=== PATIENT | female | born 1955 | race Caucasian/White ===

== ENCOUNTER 2023-07-02 14:37 | Emergency (ER) | payer OTHER, MEDICAID ==
[~2023-07-02] VITALS: Ht 157.5 cm; Wt 90.7 kg
[2023-07-02 14:41] VITALS: BP_SYST 138; PULSE 75; RESP 18; TEMP 98.3; O2SAT 98
[2023-07-02 15:38] LABS: BASOPHILS # (AUTO) 0.1 K/uL (0.0-0.2); BASOPHILS % (AUTO) 1.1 % (0.0-2.0); EOSINOPHILS # (AUTO) 0.1 K/uL (0.0-0.4); EOSINOPHILS % (AUTO) 0.9 % (0.0-4.0); HEMATOCRIT 33.3 % (36-48); HEMOGLOBIN 11.2 g/dL (12.0-16.0); LYMPHOCYTES # (AUTO) 1.4 K/uL (1.0-5.5); LYMPHOCYTES % (AUTO) 21.3 % (20.5-51.5); MEAN CORPUSCULAR HEMOGLOBIN 30 pg (27-31); MEAN CORPUSCULAR HGB CONC 34 % (32-36); MEAN CORPUSCULAR VOLUME 89 fL (79.0-98.0); MONOCYTES # (AUTO) 0.7 K/uL (0.0-1.0); MONOCYTES % (AUTO) 10.4 % (1.7-9.3); NEUTROPHILS # (AUTO) 4.4 K/uL (1.8-7.7); NEUTROPHILS % (AUTO) 66.3 % (40.0-70.0); PLATELET COUNT (AUTO) 342 K/uL (130-430); RED BLOOD CELL COUNT(AUTO) 3.76 MIL/uL (4.2-6.2); RED CELL DISTRIBUTION WIDTH 16.6 % (9.0-15.0); WHITE BLOOD COUNT (AUTO) 6.7 K/uL (4.8-10.8)
[2023-07-02 15:49] LABS: INR 1.1 (0.8-1.2)
[2023-07-02 15:51] LABS: ANION GAP 8 (5-15); CALCIUM 9.1 mg/dL (8.4-11.0); CARBON DIOXIDE 27 mmol/L (23-29); CHLORIDE 97 mmol/L (98-107); CREATININE 2.79 mg/dL (0.55-1.30); GFR AFRICAN AMERICAN 22 mL/min (>90); GLUCOSE 112 mg/dL (74-106); POTASSIUM 5.1 mmol/L (3.5-5.1); SODIUM SERUM 132 mmol/L (136-145); UREA NITROGEN, BLOOD 41 mg/dL (8-21)
[2023-07-02 15:54] LABS: GFR NON AFRICAN-AMERICAN 18 mL/min (>90)
[2023-07-02 16:15] LABS: ALANINE AMINOTRANSFERASE 28 U/L (12-78); AMYLASE 27 U/L (0-100); ASPARTATE AMINOTRANSFERASE 24 U/L (10-37); BILIRUBIN,DIRECT 0.1 mg/dL (0.0-0.3); LACTATE DEHYDROGENASE 128 U/L (81-234); LIPASE 27 U/L (16-77); TOTAL BILIRUBIN 0.3 mg/dL (0.0-1.0); TOTAL PROTEIN, SERUM 7.8 g/dL (6.4-8.3)
[2023-07-02] MEDS ORDERED: IBUP-1969 PO (17:14)
[2023-07-02] MEDS ORDERED: FLEETMO RC (17:14)
[2023-07-02] MEDS: MORPHINE 4 MG INJ. 4 MG/ML VIAL IM ONE (20:31)
[2023-07-02 20:35] VITALS: BP_SYST 156; PULSE 83; RESP 16; TEMP 98.4; O2SAT 94
== END 2023-07-02 20:35 | disposition home or self-care (01) ==
LOC: SED 14:37
DX: K59.00 Constipation, unspecified (principal); D21.9 Benign neoplasm of connective and other soft tissue, unspecified; R10.84 Generalized abdominal pain; R11.2 Nausea with vomiting, unspecified; Z88.0 Allergy status to penicillin; Z88.1 Allergy status to other antibiotic agents; Z79.899 Other long term (current) drug therapy
CPT/HCPCS: 99285; 74176; 96374; 80076; 80048; 82150; 83615; 83690; 85025; 85610; 85730; 84484; 36415; 83605; 82397; J2270

== ENCOUNTER 2023-11-06 20:55 | Inpatient (IN) | payer OTHER, MEDICAID ==
[~2023-11-06] VITALS: Ht 157.5 cm; Wt 78.6 kg
[~2023-11-06 20:55] MED LIST: ACET325T PO; AMIN30LI2 PO; AMLO5TAB4 PO; ASPI-1393 PO; CALC667T6 PO; DARB60VI INJ; DOCU-144 PO; DOCU250C71 PO; ERTA1VIA3 INJ; FAMO20TA8 PO; FOLI0.8T42 PO; GLUC1VIA20 IM; HEPA500015 SUBCUT; HYDR100T13 PO; IBUP-1969 PO; INSU100V SUBCUT; INSU100V44 SUBCUT; LACT10SO6 PO; LACT1CAP57 PO; LIP40 PO; Lactulose PO; METO50TA16 PO; NITR30OI TD; ONDA4TAB55 PO
[2023-11-06 21:11] VITALS: BP_SYST 135; PULSE 77; RESP 18; TEMP 98.7; O2SAT 97
[2023-11-06] MEDS ORDERED: LACT10SO7 PO (22:49)
[2023-11-06] MEDS ORDERED: DEC4 PO (22:49)
[2023-11-06] MEDS ORDERED: SSNOVOLOG SUBCUT (22:49)
[2023-11-06] MEDS ORDERED: PRO40 PO (22:49)
[2023-11-06] MEDS ORDERED: HYDR-3917 PO (22:49)
[2023-11-06] MEDS ORDERED: HYDR50TA44 PO (22:49)
[2023-11-06] MEDS ORDERED: TOPXL100 PO (22:49)
[2023-11-06] MEDS ORDERED: SACC250C12 (22:49)
[2023-11-06] MEDS ORDERED: IPRA4AER INH (22:49)
[2023-11-06 23:02] LABS: BASOPHILS % (AUTO) 0.1 % (0.0-2.0); HEMATOCRIT 33.2 % (36-48); HEMOGLOBIN 11.1 g/dL (12.0-16.0); LYMPHOCYTES # (AUTO) 0.7 K/uL (1.0-5.5); LYMPHOCYTES % (AUTO) 5.2 % (20.5-51.5); MEAN CORPUSCULAR HEMOGLOBIN 30 pg (27-31); MEAN CORPUSCULAR HGB CONC 33 % (32-36); MEAN CORPUSCULAR VOLUME 90 fL (79.0-98.0); MONOCYTES # (AUTO) 0.8 K/uL (0.0-1.0); NEUTROPHILS # (AUTO) 11.1 K/uL (1.8-7.7); NEUTROPHILS % (AUTO) 88.7 % (40.0-70.0); PLATELET COUNT (AUTO) 300 K/uL (130-430); RED BLOOD CELL COUNT(AUTO) 3.68 MIL/uL (4.2-6.2); RED CELL DISTRIBUTION WIDTH 16.1 % (9.0-15.0); WHITE BLOOD COUNT (AUTO) 12.5 K/uL (4.8-10.8)
[2023-11-06 23:12] LABS: ANION GAP 10 (5-15); CALCIUM 8.6 mg/dL (8.4-11.0); CARBON DIOXIDE 24 mmol/L (23-29); CHLORIDE 97 mmol/L (98-107); CREATININE 4.64 mg/dL (0.55-1.30); GFR AFRICAN AMERICAN 12 mL/min (>90); GLUCOSE 310 mg/dL (74-106); POTASSIUM 4.7 mmol/L (3.5-5.1); SODIUM SERUM 131 mmol/L (136-145)
[2023-11-06 23:15] LABS: GFR NON AFRICAN-AMERICAN 10 mL/min (>90); UREA NITROGEN, BLOOD 102 mg/dL (8-21)
[2023-11-07] VITALS (10 sets, daily range): BP systolic 111–177; PULSE 60–83; RESP 16–18; TEMP 97.2–98.9; O2SAT 95–100
[2023-11-07] MEDS: cloNIDine HCL 0.1 MG TABLET PO PRN (02:55)
[2023-11-07] MEDS: HEPARIN SODIUM, PORCINE 10,000 UNITS/ 10 ML VIAL MC ONE (04:55)
[2023-11-07] MEDS: HEPARIN SODIUM,PORCINE 5,000 UNITS/ML VIAL IVP ONE ×2 (05:04→05:05)
[2023-11-07] MEDS ORDERED: HYDROcodone/ACETAMIN 5-325 MG TAB (NORCO/ VICODIN) PO PRN (05:15)
[2023-11-07] MEDS ORDERED: NALOXONE HCL 0.4 MG/ML AMP (NARCAN) IVP PRN (05:15)
[2023-11-07] MEDS ORDERED: ACETAMINOPHEN 325 MG TABLET PO PRN ×2 (05:15)
[2023-11-07] MEDS ORDERED: GLUCAGON,HUMAN RECOMBINANT 1 MG VIAL IM PRN (06:45)
[2023-11-07] MEDS: INSULIN Lispro 100 UNITS/ML, 3 ML VIAL (humaLOG) SUBCUT SCH (06:51)
[2023-11-07 08:40] LABS: BASOPHILS % (AUTO) 0.3 % (0.0-2.0); EOSINOPHILS % (AUTO) 0.3 % (0.0-4.0); HEMATOCRIT 33.9 % (36-48); HEMOGLOBIN 11.2 g/dL (12.0-16.0); LYMPHOCYTES # (AUTO) 1.1 K/uL (1.0-5.5); LYMPHOCYTES % (AUTO) 7.7 % (20.5-51.5); MEAN CORPUSCULAR HEMOGLOBIN 30 pg (27-31); MEAN CORPUSCULAR HGB CONC 33 % (32-36); MEAN CORPUSCULAR VOLUME 90 fL (79.0-98.0); MONOCYTES # (AUTO) 1.2 K/uL (0.0-1.0); MONOCYTES % (AUTO) 8.2 % (1.7-9.3); NEUTROPHILS # (AUTO) 11.8 K/uL (1.8-7.7); NEUTROPHILS % (AUTO) 83.5 % (40.0-70.0); PLATELET COUNT (AUTO) 235 K/uL (130-430); RED BLOOD CELL COUNT(AUTO) 3.77 MIL/uL (4.2-6.2); RED CELL DISTRIBUTION WIDTH 15.4 % (9.0-15.0); WHITE BLOOD COUNT (AUTO) 14.2 K/uL (4.8-10.8)
[2023-11-07 08:51] LABS: ALBUMIN 2.7 g/dL (3.4-4.8); CALCIUM 8.5 mg/dL (8.4-11.0); CREATININE 3.01 mg/dL (0.55-1.30); PHOSPHORUS 3.1 mg/dL (2.7-4.5); POTASSIUM 3.6 mmol/L (3.5-5.1); TOTAL BILIRUBIN 0.5 mg/dL (0.0-1.0); TOTAL PROTEIN, SERUM 6.5 g/dL (6.4-8.3)
[2023-11-07] MEDS: CALCIUM ACETATE 667 MG CAP PO SCH (08:52)
[2023-11-07] MEDS: ASPIRIN 81 MG TABLET(ECOTRIN) PO SCH (08:53)
[2023-11-07] MEDS: METOPROLOL SUCCINATE 50 MG TAB.SR.24H (TOPROL XL) PO SCH (08:53)
[2023-11-07] MEDS: PANTOPRAZOLE SODIUM 40 MG TAB PO SCH (08:53)
[2023-11-07] MEDS: DOCUSATE SODIUM 250 MG CAPSULE PO SCH (08:54)
[2023-11-07] MEDS: amLODIPine BESYLATE 5 MG TABLET PO SCH (08:54)
[2023-11-07] MEDS: FAMOTIDINE 20 MG TABLET PO SCH (08:55)
[2023-11-07] MEDS: hydrALAZINE HCL 25 MG TABLET PO SCH (08:55)
[2023-11-07] MEDS ORDERED: NON-FORMULARY MEDICATION (Amino Acids/Protein Hydrolys (Pro-Stat Liquid) 30 ML) PO SCH (09:00)
[2023-11-07] MEDS ORDERED: IPRATROPIUM/ALBUTEROL SULFATE 120 PUFFS/4 GM INH INH SCH (09:00)
[2023-11-07] MEDS: IPRATROPIUM BROM 0.5 MG/2.5 ML VIAL.NEB (ATROVENT) INH SCH (09:36)
[2023-11-07] MEDS: ALBUTEROL SULFATE 0.083% 2.5 MG/3 ML VIAL.NEB INH SCH (09:36)
[2023-11-07 17:46] LABS: BILIRUBIN,URINE NEGATIVE (NEGATIVE); BLOOD, URINE NEGATIVE (NEGATIVE); CLARITY/URINE SL CLOUDY (CLEAR); COLOR,URINE YELLOW (YELLOW); GLUCOSE,URINE NEGATIVE (NEGATIVE); KETONES,URINE NEGATIVE (NEGATIVE); LEUKOCYTE ESTERASE ,URINE 2+ (NEGATIVE); NITRITE, URINE NEGATIVE (NEGATIVE); PH,URINE 8.5 (5.0-8.0); PROTEIN URINE 2+ (NEGATIVE); UROBILINOGEN,URINE 0.2 (0.2-1.0)
[2023-11-07] MEDS ORDERED: INSULIN REGULAR, HUMAN 100 UNITS/ML, 3 ML VIAL SUBCUT SCH (18:00)
[2023-11-07 18:01] LABS: BACTERIA,URINE MANY /HPF (None Seen); MUCUS,URINE None Seen /LPF (None Seen); RBC,URINE 0-3 /HPF (0-3); WBC,URINE >100 /HPF (0-3)
[2023-11-07] MEDS: INSULIN REGULAR, HUMAN 100 UNITS/ML, 3 ML VIAL (humuLIN R) SUBCUT PRN (18:45)
[2023-11-07] MEDS: ATORVASTATIN 20 MG TABLET PO SCH (21:40)
[2023-11-08] VITALS (11 sets, daily range): BP systolic 112–165; PULSE 67–88; RESP 14–18; TEMP 96.9–98.3; O2SAT 96–100
[2023-11-08 04:41] LABS: BASOPHILS # (AUTO) 0.1 K/uL (0.0-0.2); BASOPHILS % (AUTO) 0.6 % (0.0-2.0); EOSINOPHILS # (AUTO) 0.1 K/uL (0.0-0.4); HEMOGLOBIN 10.2 g/dL (12.0-16.0); LYMPHOCYTES # (AUTO) 1.6 K/uL (1.0-5.5); LYMPHOCYTES % (AUTO) 17.5 % (20.5-51.5); MEAN CORPUSCULAR HEMOGLOBIN 30 pg (27-31); MEAN CORPUSCULAR HGB CONC 33 % (32-36); MEAN CORPUSCULAR VOLUME 91 fL (79.0-98.0); MONOCYTES # (AUTO) 1.3 K/uL (0.0-1.0); MONOCYTES % (AUTO) 14.3 % (1.7-9.3); NEUTROPHILS # (AUTO) 6.1 K/uL (1.8-7.7); NEUTROPHILS % (AUTO) 66.6 % (40.0-70.0); PLATELET COUNT (AUTO) 223 K/uL (130-430); RED BLOOD CELL COUNT(AUTO) 3.42 MIL/uL (4.2-6.2); RED CELL DISTRIBUTION WIDTH 15.4 % (9.0-15.0); WHITE BLOOD COUNT (AUTO) 9.1 K/uL (4.8-10.8)
[2023-11-08 04:54] LABS: ALBUMIN 2.3 g/dL (3.4-4.8); CREATININE 4.01 mg/dL (0.55-1.30); PHOSPHORUS 3.7 mg/dL (2.7-4.5); POTASSIUM 4.8 mmol/L (3.5-5.1); TOTAL BILIRUBIN 0.3 mg/dL (0.0-1.0); TOTAL PROTEIN, SERUM 5.7 g/dL (6.4-8.3)
[2023-11-08] MEDS ORDERED: IPRATROPIUM BROM 0.5 MG/2.5 ML VIAL.NEB (ATROVENT) INH PRN (19:00)
[2023-11-08] MEDS ORDERED: ALBUTEROL SULFATE 0.083% 2.5 MG/3 ML VIAL.NEB INH PRN (19:00)
[2023-11-09] VITALS (8 sets, daily range): BP systolic 130–145; PULSE 71–76; RESP 14–18; TEMP 97.3–98.4; O2SAT 96–98
[2023-11-09] MEDS: ALTEPLASE 2 MG VIAL MC ONE (12:22)
[2023-11-09] MEDS ORDERED: HEPARIN SODIUM,PORCINE 5,000 UNITS/ML VIAL ONE (19:08)
[2023-11-09] MEDS ORDERED: HEPARIN SODIUM,PORCINE 5,000 UNITS/ML VIAL MC ONE (19:15)
== END 2023-11-09 22:20 | DRG 640 ==
LOC: SED 20:55 → STU 11-07 00:19
PROVIDERS: ADMIT Internal Medicine; ATTEND Internal Medicine
PROC: 5A1D70Z Performance of Urinary Filtration, Intermittent, Less than 6 Hours Per Day (ICD-10-PCS; principal; 2023-11-07)
PROC: 5A1D70Z Performance of Urinary Filtration, Intermittent, Less than 6 Hours Per Day (ICD-10-PCS; 2023-11-09)
DX: E87.70 Fluid overload, unspecified (principal); N18.6 End stage renal disease; E44.1 Mild protein-calorie malnutrition; I13.11 Hypertensive heart and chronic kidney disease without heart failure, with stage 5 chronic kidney disease, or end stage renal disease; K21.9 Gastro-esophageal reflux disease without esophagitis; D63.1 Anemia in chronic kidney disease; E11.51 Type 2 diabetes mellitus with diabetic peripheral angiopathy without gangrene; J44.9 Chronic obstructive pulmonary disease, unspecified; E78.5 Hyperlipidemia, unspecified; E11.22 Type 2 diabetes mellitus with diabetic chronic kidney disease; Z88.0 Allergy status to penicillin; Z88.8 Allergy status to other drugs, medicaments and biological substances; Z91.041 Radiographic dye allergy status; Z79.899 Other long term (current) drug therapy; Z99.2 Dependence on renal dialysis; Z79.4 Long term (current) use of insulin; Z79.1 Long term (current) use of non-steroidal anti-inflammatories (NSAID); Z68.31 Body mass index [BMI] 31.0-31.9, adult
CPT/HCPCS: 36415; 71045; 80048; 80053; 81000; 81001; 81015; 82948; 83037; 83880; 84100; 84484; 85025; 87081; 87086; 87186; 90935; 90937; 93005; 94640; 94760; 99285; G0378; J1644; J1815; J2997